=== PATIENT | female | born 1945 | race Caucasian/White ===

== ENCOUNTER 2017-07-13 16:22 | Inpatient (IN) | payer MEDICARE, MEDICAID ==
[~2017-07-13] VITALS: Ht 165.1 cm; Wt 107.3 kg
[~2017-07-13 16:22] MED LIST: ALB0.5UD IH; CARB1TAB35 PO; CARV3.1289 PO; CHOL100010 PO; DIPH-423 PO; FURO40TA4 PO; GEMF600T3 PO; LANTUS SUBCUT; LISI-604 PO; MAGN250T29 PO; METF-436 PO; NITR0.4T51 SL; POTA10TA10 PO; PROB500T10 PO; TRAZ-89 PO; [UNRECOGNIZED DRUG - CODE] PO
[2017-07-13 16:58] LABS: BASOPHILS % (AUTO) 0.6 % (0-1); EOSINOPHILS # (AUTO) 0.1 X10'3 (0-0.9); EOSINOPHILS % (AUTO) 1.4 % (0-6); HEMATOCRIT 40.8 % (35.0-45.0); LYMPHOCYTES % (AUTO) 26.7 % (21-51); MEAN CORPUSCULAR HEMOGLOBIN 30.8 PG (27.0-31.0); MEAN CORPUSCULAR HGB CONC 34.4 % (33.0-36.5); MEAN CORPUSCULAR VOLUME 89.7 FL (78-98); MEAN PLATELET VOLUME 7.7 FL (7.4-10.4); MONOCYTES # (AUTO) 0.5 X10'3 (0-0.9); MONOCYTES % (AUTO) 6.7 % (2-12); NEUTROPHILS # (AUTO) 4.9 X10'3 (1.8-7.7); NEUTROPHILS % (AUTO) 64.6 % (42-75); PLATELET COUNT 267 X10'3 (140-440); RED BLOOD COUNT 4.55 X10'6 (4.20-5.60); RED CELL DISTRIBUTION WIDTH 13.3 % (11.5-14.5); WHITE BLOOD COUNT 7.6 X10'3 (4.5-11.0)
[2017-07-13 17:08] LABS: PARTIAL THROMBOPLASTIN TIME 25 SECONDS (22-32); PROTHROMBIN TIME 10.3 SECONDS (9.0-12.0)
[2017-07-13 17:11] LABS: ALANINE AMINOTRANSFERASE 12 U/L (12-78); ALBUMIN 3.6 G/DL (3.4-5.0); ALKALINE PHOSPHATASE 52 IU/L (46-116); ANION GAP 12 (8-16); ASPARTATE AMINO TRANSFERASE 19 U/L (10-37); BILIRUBIN,TOTAL 0.2 MG/DL (0.1-1.0); BLOOD UREA NITROGEN 17 MG/DL (7-18); BUN/CREATININE RATIO 13.6 (6.6-38.0); CALCIUM 9.1 MG/DL (8.5-10.1); CHLORIDE 102 MMOL/L (99-107); CREATININE 1.25 MG/DL (0.40-0.90); GLUCOSE 195 MG/DL (70-104); POTASSIUM 4.4 MMOL/L (3.5-5.1); SODIUM 138 MMOL/L (135-145); TOTAL CARBON DIOXIDE 24.4 MMOL/L (24-32); TOTAL PROTEIN 7.1 G/DL (6.4-8.2); eGFR 42 ML/MIN
[2017-07-13] MEDS ORDERED: metoprolol tartrate 50mg tablet PO ONE (18:10)
[2017-07-13] MEDS ORDERED: lisinopril 5mg tablet PO SCH (21:00)
[2017-07-13] MEDS ORDERED: nitroGLYCERIN 0.4mg SUBLingual tab SL PRN (21:00)
[2017-07-13] MEDS ORDERED: mag hydrox/Alum hydrox/simeth 30ml oral suspension PO PRN (21:00)
[2017-07-13] MEDS ORDERED: acetaminophen 325mg tablet PO PRN (21:00)
[2017-07-13] MEDS ORDERED: ondansetron/PF 4mg/2ml inj IV PRN (21:00)
[2017-07-13] MEDS ORDERED: magnesium hydroxide 30ml (MOM) UD suspension PO PRN (21:00)
[2017-07-13] MEDS ORDERED: glucagon, human recombinant 1mg kit SUBCUT PRN (21:10)
[2017-07-13] MEDS ORDERED: dextrose 50%-water 50ml dispensing syringe IV PRN ×2 (21:10)
[2017-07-13] MEDS ORDERED: MESSAGE TO PHARMACY PO ONE (21:10)
[2017-07-13] MEDS ORDERED: dextrose ORAL solution 15 GM/59 ML bottle PO PRN ×2 (21:10)
[2017-07-13 21:25] LABS: HEMOGLOBIN A1C 8.3 % (4.5-6.2)
[2017-07-13] MEDS: diphenhydrAMINE 25mg capsule PO SCH (21:46)
[2017-07-13] MEDS: traZODone 50mg tablet PO SCH (21:46)
[2017-07-13 22:00] VITALS: BP 174/94
[2017-07-13] MEDS ORDERED: albuterol 2.5 MG/3 ML nebule NEB PRN (22:10)
[2017-07-14 02:00] VITALS: BP 175/50
[2017-07-14 05:57] LABS: BASOPHILS % (AUTO) 0.6 % (0-1); EOSINOPHILS # (AUTO) 0.2 X10'3 (0-0.9); EOSINOPHILS % (AUTO) 2.2 % (0-6); HEMATOCRIT 38.1 % (35.0-45.0); HEMOGLOBIN 13.1 g/dl (12.0-16.0); LYMPHOCYTES # (AUTO) 2.1 X10'3 (1.1-4.8); LYMPHOCYTES % (AUTO) 28.9 % (21-51); MEAN CORPUSCULAR HGB CONC 34.5 % (33.0-36.5); MEAN CORPUSCULAR VOLUME 90.1 FL (78-98); MEAN PLATELET VOLUME 7.8 FL (7.4-10.4); MONOCYTES # (AUTO) 0.5 X10'3 (0-0.9); MONOCYTES % (AUTO) 6.3 % (2-12); NEUTROPHILS # (AUTO) 4.4 X10'3 (1.8-7.7); PLATELET COUNT 228 X10'3 (140-440); RED BLOOD COUNT 4.22 X10'6 (4.20-5.60); RED CELL DISTRIBUTION WIDTH 13.2 % (11.5-14.5); WHITE BLOOD COUNT 7.2 X10'3 (4.5-11.0)
[2017-07-14 06:00] VITALS: BP 163/90
[2017-07-14 06:08] LABS: ALANINE AMINOTRANSFERASE 22 U/L (12-78); ALBUMIN 3.2 G/DL (3.4-5.0); ALKALINE PHOSPHATASE 45 IU/L (46-116); ANION GAP 7 (8-16); ASPARTATE AMINO TRANSFERASE 17 U/L (10-37); BILIRUBIN,TOTAL 0.3 MG/DL (0.1-1.0); BLOOD UREA NITROGEN 18 MG/DL (7-18); BUN/CREATININE RATIO 16.7 (6.6-38.0); CALCIUM 8.8 MG/DL (8.5-10.1); CHLORIDE 103 MMOL/L (99-107); CREATININE 1.08 MG/DL (0.40-0.90); GLUCOSE 193 MG/DL (70-104); POTASSIUM 4.1 MMOL/L (3.5-5.1); SODIUM 139 MMOL/L (135-145); TOTAL CARBON DIOXIDE 29.4 MMOL/L (24-32); TOTAL PROTEIN 6.3 G/DL (6.4-8.2); eGFR 50 ML/MIN
[2017-07-14 06:11] LABS: CHOL/HDL RATIO 4.3 (0.00-4.99); CHOLESTEROL 121 MG/DL (0-200); HDL CHOLESTEROL 28 MG/DL (35-60); LDL CHOLESTEROL 65 MG/DL (50-100); TRIGLYCERIDES 254 MG/DL (20-135)
[2017-07-14] MEDS: MAGNESIUM OXIDE 250 MG PO SCH ×2 (08:00→20:00)
[2017-07-14] MEDS: famotidine 20mg tablet PO SCH (08:00)
[2017-07-14] MEDS ORDERED: RANITIDINE HCL 300 MG PO SCH (08:00)
[2017-07-14] MEDS: diphenhydrAMINE 25mg capsule PO SCH ×3 (08:00→21:48)
[2017-07-14] MEDS: carvedilol 6.25mg tablet PO SCH ×2 (08:00→21:48)
[2017-07-14] MEDS: carbidoba-levodopa 25-100mg tablet PO SCH ×2 (08:01→21:48)
[2017-07-14] MEDS: potassium chloride 8mEq ER tablet PO SCH ×2 (08:01→21:48)
[2017-07-14] MEDS: furosemide 40mg tablet PO SCH (08:02)
[2017-07-14] MEDS: probenecid 500mg tablet PO SCH ×2 (08:03→21:48)
[2017-07-14] MEDS ORDERED: aspirin 325mg tablet PO SCH (08:30)
[2017-07-14] MEDS: insulin Lispro (HumaLOG) vial - multi-dose SQ SCH ×3 (09:31→19:17)
[2017-07-14] MEDS: gemfibrozil 600mg tablet PO SCH ×2 (09:36→21:49)
[2017-07-14] MEDS: heparin, porcine 5000 units/ml vial SQ SCH ×2 (09:37→21:49)
[2017-07-14] MEDS: aspirin 81mg tablet.DR PO SCH (09:38)
[2017-07-14] MEDS ORDERED: lisinopril 20mg tablet PO SCH (16:05)
[2017-07-14 18:00] VITALS: BP 184/93
[2017-07-14] MEDS ORDERED: insulin glargine (Lantus) pen - multi-dose SQ SCH (21:00)
[2017-07-14] MEDS: traZODone 50mg tablet PO SCH (21:49)
[2017-07-14 22:00] VITALS: BP 131/71
[2017-07-15 02:00] VITALS: BP 100/59
[2017-07-15 06:00] LABS: BASOPHILS % (AUTO) 0.6 % (0-1); EOSINOPHILS # (AUTO) 0.2 X10'3 (0-0.9); EOSINOPHILS % (AUTO) 2.9 % (0-6); HEMATOCRIT 38.3 % (35.0-45.0); HEMOGLOBIN 13.3 g/dl (12.0-16.0); LYMPHOCYTES % (AUTO) 33.1 % (21-51); MEAN CORPUSCULAR HGB CONC 34.7 % (33.0-36.5); MEAN CORPUSCULAR VOLUME 89.4 FL (78-98); MEAN PLATELET VOLUME 7.8 FL (7.4-10.4); MONOCYTES # (AUTO) 0.4 X10'3 (0-0.9); MONOCYTES % (AUTO) 6.8 % (2-12); NEUTROPHILS # (AUTO) 3.5 X10'3 (1.8-7.7); NEUTROPHILS % (AUTO) 56.6 % (42-75); PLATELET COUNT 218 X10'3 (140-440); RED BLOOD COUNT 4.28 X10'6 (4.20-5.60); RED CELL DISTRIBUTION WIDTH 13.3 % (11.5-14.5); WHITE BLOOD COUNT 6.2 X10'3 (4.5-11.0)
[2017-07-15 06:17] LABS: ALANINE AMINOTRANSFERASE 9 U/L (12-78); ALBUMIN 3.2 G/DL (3.4-5.0); ALKALINE PHOSPHATASE 48 IU/L (46-116); ANION GAP 10 (8-16); ASPARTATE AMINO TRANSFERASE 23 U/L (10-37); BILIRUBIN,TOTAL 0.4 MG/DL (0.1-1.0); BLOOD UREA NITROGEN 23 MG/DL (7-18); BUN/CREATININE RATIO 18.5 (6.6-38.0); CALCIUM 8.8 MG/DL (8.5-10.1); CHLORIDE 101 MMOL/L (99-107); CREATININE 1.24 MG/DL (0.40-0.90); GLUCOSE 210 MG/DL (70-104); POTASSIUM 4.1 MMOL/L (3.5-5.1); SODIUM 137 MMOL/L (135-145); TOTAL CARBON DIOXIDE 25.8 MMOL/L (24-32); TOTAL PROTEIN 6.3 G/DL (6.4-8.2); eGFR 43 ML/MIN
[2017-07-15 07:50] VITALS: BP 122/67
[2017-07-15] MEDS: MAGNESIUM OXIDE 250 MG PO SCH (08:00)
[2017-07-15] MEDS: insulin Lispro (HumaLOG) vial - multi-dose SQ SCH ×2 (08:19→13:33)
[2017-07-15] MEDS: aspirin 81mg tablet.DR PO SCH (08:20)
[2017-07-15] MEDS: diphenhydrAMINE 25mg capsule PO SCH ×3 (08:20→13:34)
[2017-07-15] MEDS: famotidine 20mg tablet PO SCH (08:20)
[2017-07-15] MEDS: carvedilol 6.25mg tablet PO SCH (08:20)
[2017-07-15] MEDS: probenecid 500mg tablet PO SCH (08:20)
[2017-07-15] MEDS: gemfibrozil 600mg tablet PO SCH (08:20)
[2017-07-15] MEDS: furosemide 40mg tablet PO SCH (08:20)
[2017-07-15] MEDS: potassium chloride 8mEq ER tablet PO SCH (08:20)
[2017-07-15] MEDS: carbidoba-levodopa 25-100mg tablet PO SCH (08:20)
[2017-07-15] MEDS: heparin, porcine 5000 units/ml vial SQ SCH (08:21)
[2017-07-15] MEDS ORDERED: LORazepam 2 mg/ml vial IV ONE (09:50)
[2017-07-15 11:14] VITALS: BP 140/75
[2017-07-15 14:31] VITALS: BP 135/73
[2017-07-15] MEDS ORDERED: ASPI-1071 PO (16:56)
== END 2017-07-15 17:27 | disposition home or self-care (01) | DRG 47 ==
LOC: ER 16:22 → ED HOLD 21:00 → ORTHO 4S 22:10
PROVIDERS: ADMIT Internal Medicine; ATTEND Family Medicine
DX: G45.9 Transient cerebral ischemic attack, unspecified (principal); I48.91 Unspecified atrial fibrillation; E11.9 Type 2 diabetes mellitus without complications; I51.81 Takotsubo syndrome; E78.5 Hyperlipidemia, unspecified; J45.909 Unspecified asthma, uncomplicated; R07.89 Other chest pain; I10 Essential (primary) hypertension; R47.81 Slurred speech; R29.810 Facial weakness; G47.33 Obstructive sleep apnea (adult) (pediatric); Z91.041 Radiographic dye allergy status; Z88.2 Allergy status to sulfonamides; I25.2 Old myocardial infarction; Z88.8 Allergy status to other drugs, medicaments and biological substances; Z91.018 Allergy to other foods; Z88.6 Allergy status to analgesic agent; Z86.73 Personal history of transient ischemic attack (TIA), and cerebral infarction without residual deficits; Z87.891 Personal history of nicotine dependence; Z90.49 Acquired absence of other specified parts of digestive tract; Z79.4 Long term (current) use of insulin
CPT/HCPCS: 36415; 70450; 70544; 70551; 71045; 80053; 80061; 82948; 83036; 83880; 84484; 85025; 85610; 85730; 87070; 92616; 93005; 93306; 93880; 99285; J1644; J1815; J2060; Q0163

== ENCOUNTER 2017-09-13 13:16 | Inpatient (IN) | payer MEDICARE, MEDICAID ==
[~2017-09-13] VITALS: Ht 165.1 cm; Wt 107.0 kg
[~2017-09-13 13:16] MED LIST changes: +ASPI-1071 PO
[2017-09-13 13:51] LABS: BASOPHILS # (AUTO) 0.1 X10'3 (0-0.2); EOSINOPHILS # (AUTO) 0.1 X10'3 (0-0.9); EOSINOPHILS % (AUTO) 1.7 % (0-6); HEMATOCRIT 42.5 % (35.0-45.0); HEMOGLOBIN 14.4 g/dl (12.0-16.0); LYMPHOCYTES # (AUTO) 1.8 X10'3 (1.1-4.8); LYMPHOCYTES % (AUTO) 28.9 % (21-51); MEAN CORPUSCULAR HEMOGLOBIN 30.6 PG (27.0-31.0); MEAN CORPUSCULAR HGB CONC 33.9 % (33.0-36.5); MEAN CORPUSCULAR VOLUME 90.3 FL (78-98); MEAN PLATELET VOLUME 7.9 FL (7.4-10.4); MONOCYTES # (AUTO) 0.4 X10'3 (0-0.9); MONOCYTES % (AUTO) 5.8 % (2-12); NEUTROPHILS # (AUTO) 3.8 X10'3 (1.8-7.7); NEUTROPHILS % (AUTO) 62.6 % (42-75); PLATELET COUNT 214 X10'3 (140-440); RED CELL DISTRIBUTION WIDTH 13.1 % (11.5-14.5); WHITE BLOOD COUNT 6.1 X10'3 (4.5-11.0)
[2017-09-13 14:03] LABS: INR 1.1 INR; PARTIAL THROMBOPLASTIN TIME 26 SECONDS (22-32); PROTHROMBIN TIME 10.9 SECONDS (9.0-12.0)
[2017-09-13 14:08] LABS: ALANINE AMINOTRANSFERASE 12 U/L (12-78); ALBUMIN 3.7 G/DL (3.4-5.0); ALBUMIN/GLOBULIN RATIO 1.1 (1.1-1.5); ALKALINE PHOSPHATASE 56 IU/L (46-116); ANION GAP 9 (8-16); ASPARTATE AMINO TRANSFERASE 17 U/L (10-37); BILIRUBIN,TOTAL 0.3 MG/DL (0.1-1.0); BLOOD UREA NITROGEN 19 MG/DL (7-18); BUN/CREATININE RATIO 15.3 (6.6-38.0); CALCIUM 9.1 MG/DL (8.5-10.1); CHLORIDE 101 MMOL/L (99-107); CREATININE 1.24 MG/DL (0.40-0.90); GLUCOSE 138 MG/DL (70-104); MAGNESIUM 2.2 MG/DL (1.5-2.4); POTASSIUM 4.5 MMOL/L (3.5-5.1); SODIUM 138 MMOL/L (135-145); TOTAL CARBON DIOXIDE 28.2 MMOL/L (24-32); TOTAL PROTEIN 7.2 G/DL (6.4-8.2); eGFR 43 ML/MIN
[2017-09-13] MEDS ORDERED: HYDROmorphone 1 mg/ml syringe IV PRN ×2 (15:40)
[2017-09-13] MEDS ORDERED: morphine 4 MG/ML inj SYRINge IV PRN ×2 (15:40)
[2017-09-13] MEDS ORDERED: bisacodyl 10mg suppository rectal RC PRN (15:40)
[2017-09-13] MEDS ORDERED: magnesium hydroxide 30ml (MOM) UD suspension PO PRN (15:40)
[2017-09-13] MEDS ORDERED: metoclopramide 5 mg/ml inj IV PRN (15:40)
[2017-09-13] MEDS ORDERED: acetaminophen 650mg rectal suppository RC PRN (15:40)
[2017-09-13] MEDS ORDERED: acetaminophen 325mg tablet PO PRN ×2 (15:40)
[2017-09-13] MEDS ORDERED: diphenhydrAMINE 50 mg/ml inj IV PRN (15:40)
[2017-09-13] MEDS ORDERED: normal saline 1000ml 1,000 ML IV SCH (15:40)
[2017-09-13] MEDS ORDERED: mag hydrox/Alum hydrox/simeth 30ml oral suspension PO PRN (15:40)
[2017-09-13] MEDS ORDERED: diphenhydrAMINE 25mg capsule PO PRN (15:40)
[2017-09-13] MEDS ORDERED: ondansetron/PF 4mg/2ml inj IV PRN (15:40)
[2017-09-13] MEDS ORDERED: glucagon, human recombinant 1mg kit SUBCUT PRN (15:45)
[2017-09-13] MEDS ORDERED: MESSAGE TO PHARMACY PO ONE (15:45)
[2017-09-13] MEDS ORDERED: insulin Lispro (HumaLOG) vial - multi-dose SQ SCH (15:45)
[2017-09-13] MEDS: atorvastatin 10mg tablet PO SCH (15:45)
[2017-09-13] MEDS ORDERED: dextrose 50%-water 50ml dispensing syringe IV PRN ×2 (15:45)
[2017-09-13] MEDS ORDERED: dextrose ORAL solution 15 GM/59 ML bottle PO PRN ×2 (15:45)
[2017-09-13] MEDS: clopidogrel 75mg tablet PO SCH (15:45)
[2017-09-13 16:49] LABS: CREATINE KINASE 116 U/L (26-192); LIPASE 185 U/L (73-393); PHOSPHORUS 3.9 MG/DL (2.3-4.5)
[2017-09-13 17:11] LABS: CLARITY,URINE CLEAR (Clear); COLOR,URINE STRAW (Yellow); GLUCOSE, URINE NEGATIVE (Neg); KETONES,URINE NEGATIVE (Neg); LEUKOCYTE ESTERASE ,URINE LARGE (Neg); NITRITES, URINE NEGATIVE (Neg); OCCULT BLOOD,URINE NEGATIVE (Neg); PH,URINE 6.5 (4.8-8.0); PROTEIN,URINE NEGATIVE (Neg); UROBILINOGEN,URINE 0.2 E.U/dL (0.2-1.0)
[2017-09-13 17:20] LABS: HEMOGLOBIN A1C 7.8 % (4.5-6.2)
[2017-09-13 17:30] LABS: UA COLLECTION TYPE CLN CATCH MIDSTREAM
[2017-09-13 17:33] LABS: BACTERIA,URINE FEW /HPF (Neg); RBC,URINE NONE SEEN /HPF (0-2)
[2017-09-13 17:34] LABS: HYALINE CASTS 0-3 /LPF (NEGATIVE); MUCUS STRANDS NONE SEEN /LPF (Neg); SQUAMOUS EPITHELIAL CELL,UR FEW /LPF (FEW); TRANSITIONAL EPI CELLS,URINE FEW /HPF
[2017-09-13] MEDS: furosemide 10 MG/1 ML 10ml inj IV SCH (17:52)
[2017-09-13] MEDS: docusate sod 100mg capsule PO SCH (20:00)
[2017-09-13 20:26] VITALS: BP 196/79
[2017-09-13] MEDS ORDERED: DIPH50CA3 PO (20:47)
[2017-09-13] MEDS ORDERED: CARB1TAB23 PO (20:47)
[2017-09-13] MEDS ORDERED: LANTUS SQ (20:49)
[2017-09-13] MEDS ORDERED: temazepam 15mg capsule PO PRN (21:00)
[2017-09-13 22:00] VITALS: BP 139/77
[2017-09-14 02:00] VITALS: BP 122/68
[2017-09-14 06:34] LABS: BASOPHILS % (AUTO) 0.6 % (0-1); EOSINOPHILS # (AUTO) 0.1 X10'3 (0-0.9); EOSINOPHILS % (AUTO) 1.4 % (0-6); HEMATOCRIT 39.3 % (35.0-45.0); HEMOGLOBIN 13.4 g/dl (12.0-16.0); LYMPHOCYTES # (AUTO) 1.7 X10'3 (1.1-4.8); LYMPHOCYTES % (AUTO) 22.6 % (21-51); MEAN CORPUSCULAR HEMOGLOBIN 30.7 PG (27.0-31.0); MEAN CORPUSCULAR HGB CONC 34.1 % (33.0-36.5); MEAN CORPUSCULAR VOLUME 89.8 FL (78-98); MEAN PLATELET VOLUME 8.1 FL (7.4-10.4); MONOCYTES # (AUTO) 0.4 X10'3 (0-0.9); MONOCYTES % (AUTO) 5.3 % (2-12); NEUTROPHILS # (AUTO) 5.2 X10'3 (1.8-7.7); NEUTROPHILS % (AUTO) 70.1 % (42-75); PLATELET COUNT 220 X10'3 (140-440); RED BLOOD COUNT 4.37 X10'6 (4.20-5.60); WHITE BLOOD COUNT 7.5 X10'3 (4.5-11.0)
[2017-09-14 06:46] LABS: ALANINE AMINOTRANSFERASE 20 U/L (12-78); ALBUMIN 3.4 G/DL (3.4-5.0); ALKALINE PHOSPHATASE 50 IU/L (46-116); ANION GAP 7 (8-16); ASPARTATE AMINO TRANSFERASE 17 U/L (10-37); BILIRUBIN,TOTAL 0.3 MG/DL (0.1-1.0); BLOOD UREA NITROGEN 20 MG/DL (7-18); BUN/CREATININE RATIO 17.5 (6.6-38.0); CALCIUM 8.7 MG/DL (8.5-10.1); CHLORIDE 101 MMOL/L (99-107); CREATININE 1.14 MG/DL (0.40-0.90); GLUCOSE 163 MG/DL (70-104); POTASSIUM 3.6 MMOL/L (3.5-5.1); SODIUM 136 MMOL/L (135-145); TOTAL CARBON DIOXIDE 27.8 MMOL/L (24-32); TOTAL PROTEIN 6.7 G/DL (6.4-8.2); eGFR 47 ML/MIN
[2017-09-14 06:50] LABS: CHOL/HDL RATIO 4.3 (0.00-4.99); CHOLESTEROL 111 MG/DL (0-200); HDL CHOLESTEROL 26 MG/DL (35-60); LDL CHOLESTEROL 55 MG/DL (50-100); TRIGLYCERIDES 273 MG/DL (20-135)
[2017-09-14] MEDS: docusate sod 100mg capsule PO SCH ×2 (07:56→08:03)
[2017-09-14] MEDS: atorvastatin 10mg tablet PO SCH (07:56)
[2017-09-14] MEDS: clopidogrel 75mg tablet PO SCH (07:56)
[2017-09-14] MEDS: furosemide 10 MG/1 ML 10ml inj IV SCH (08:01)
[2017-09-14] MEDS ORDERED: LORazepam 2 mg/ml vial IM ONE (09:45)
[2017-09-14 10:00] VITALS: BP 132/67
[2017-09-14] MEDS ORDERED: albuterol 2.5 MG/3 ML nebule NEB PRN (11:20)
[2017-09-14] MEDS ORDERED: PROBENECID 500 MG PO SCH (20:00)
[2017-09-14] MEDS ORDERED: ciprofloxacin 250mg tablet PO SCH (20:00)
[2017-09-14] MEDS ORDERED: metFORMIN 500mg tablet PO SCH (20:00)
[2017-09-14] MEDS ORDERED: magnesium oxide 400mg tablet PO SCH (20:00)
[2017-09-14] MEDS ORDERED: DIPHENHYDRAMINE HCL PO SCH (20:00)
[2017-09-14] MEDS ORDERED: potassium chloride 8mEq ER tablet PO SCH (20:00)
[2017-09-14] MEDS ORDERED: gemfibrozil 600mg tablet PO SCH (20:00)
[2017-09-14] MEDS ORDERED: probenecid 500mg tablet PO SCH (20:00)
[2017-09-14] MEDS ORDERED: insulin glargine (Lantus) pen - multi-dose SQ SCH (21:00)
[2017-09-14] MEDS ORDERED: carbidoba-levodopa 25-100mg tablet PO SCH (21:00)
[2017-09-14] MEDS ORDERED: traZODone 50mg tablet PO SCH (21:00)
[2017-09-15] MEDS ORDERED: furosemide 40mg tablet PO SCH (08:00)
[2017-09-15] MEDS ORDERED: vitamin D (cholecalciferol) 1,000 unit tablet PO SCH (08:00)
[2017-09-15] MEDS ORDERED: aspirin 81mg tablet.DR PO SCH (08:30)
== END 2017-09-14 15:05 | disposition home or self-care (01) | DRG 682 ==
LOC: ER 13:16 → ED HOLD 15:40 → ORTHO 4S 20:10
PROVIDERS: ADMIT Family Medicine; ATTEND Internal Medicine
DX: N17.9 Acute kidney failure, unspecified (principal); I50.33 Acute on chronic diastolic (congestive) heart failure; G45.9 Transient cerebral ischemic attack, unspecified; I16.9 Hypertensive crisis, unspecified; E11.9 Type 2 diabetes mellitus without complications; E66.01 Morbid (severe) obesity due to excess calories; E78.5 Hyperlipidemia, unspecified; G25.81 Restless legs syndrome; I11.0 Hypertensive heart disease with heart failure; I25.10 Atherosclerotic heart disease of native coronary artery without angina pectoris; I25.2 Old myocardial infarction; J45.909 Unspecified asthma, uncomplicated; Z90.49 Acquired absence of other specified parts of digestive tract; Z88.1 Allergy status to other antibiotic agents; Z88.8 Allergy status to other drugs, medicaments and biological substances; Z88.2 Allergy status to sulfonamides; Z88.5 Allergy status to narcotic agent; Z91.018 Allergy to other foods; Z91.048 Other nonmedicinal substance allergy status; Z91.14 Patient's other noncompliance with medication regimen; Z68.39 Body mass index [BMI] 39.0-39.9, adult
CPT/HCPCS: 36415; 70450; 70544; 70551; 71045; 80053; 80061; 81001; 82550; 82948; 83036; 83690; 83735; 83880; 84100; 84443; 84484; 85025; 85610; 85730; 87070; 87077; 87088; 87186; 93005; 99285; J1815; J1940; J2060

== ENCOUNTER 2019-06-01 14:31 | Observation (INO) | payer MEDICARE, OTHER ==
[~2019-06-01] VITALS: Ht 165.1 cm; Wt 102.0 kg
[~2019-06-01 14:31] MED LIST changes: +CARB1TAB23 PO; -CARB1TAB35 PO; -CARV3.1289 PO; -DIPH-423 PO; +DIPH50CA3 PO; -GEMF600T3 PO; +GEMF600T5 PO; +LANTUS SQ; -LANTUS SUBCUT; -LISI-604 PO; -NITR0.4T51 SL; -[UNRECOGNIZED DRUG - CODE] PO
[2019-06-01 15:10] LABS: BASOPHILS # (AUTO) 0.1 X10'3 (0-0.2); EOSINOPHILS # (AUTO) 0.1 X10'3 (0-0.9); EOSINOPHILS % (AUTO) 2.2 % (0-6); HEMOGLOBIN 13.7 g/dl (12.0-16.0); LYMPHOCYTES # (AUTO) 1.6 X10'3 (1.1-4.8); LYMPHOCYTES % (AUTO) 25.7 % (21-51); MEAN CORPUSCULAR HEMOGLOBIN 30.3 PG (27.0-31.0); MEAN CORPUSCULAR HGB CONC 33.5 g/dL (33.0-36.5); MEAN CORPUSCULAR VOLUME 90.6 FL (78-98); MEAN PLATELET VOLUME 7.8 FL (7.4-10.4); MONOCYTES # (AUTO) 0.4 X10'3 (0-0.9); MONOCYTES % (AUTO) 6.4 % (2-12); NEUTROPHILS # (AUTO) 4.1 X10'3 (1.8-7.7); NEUTROPHILS % (AUTO) 64.7 % (42-75); PLATELET COUNT 254 X10'3 (140-440); RED BLOOD COUNT 4.53 X10'6 (4.20-5.60); RED CELL DISTRIBUTION WIDTH 13.1 % (11.5-14.5); WHITE BLOOD COUNT 6.4 X10'3 (4.5-11.0)
[2019-06-01 15:22] LABS: PARTIAL THROMBOPLASTIN TIME 27 SECONDS (22-32)
[2019-06-01 15:27] LABS: ALANINE AMINOTRANSFERASE 14 U/L (12-78); ALBUMIN 3.7 G/DL (3.4-5.0); ALKALINE PHOSPHATASE 53 IU/L (46-116); ANION GAP 9 (8-16); ASPARTATE AMINO TRANSFERASE 23 U/L (10-37); BILIRUBIN,TOTAL 0.3 MG/DL (0.1-1.0); BLOOD UREA NITROGEN 18 MG/DL (7-18); BUN/CREATININE RATIO 14.6 (6.6-38.0); CALCIUM 9.5 MG/DL (8.5-10.1); CHLORIDE 103 MMOL/L (99-107); CREATININE 1.23 MG/DL (0.40-0.90); GLUCOSE 142 MG/DL (70-104); POTASSIUM 4.1 MMOL/L (3.5-5.1); SODIUM 142 MMOL/L (135-145); TOTAL CARBON DIOXIDE 30.3 MMOL/L (24-32); TOTAL PROTEIN 7.5 G/DL (6.4-8.2); eGFR 43 ML/MIN
[2019-06-01] MEDS ORDERED: aspirin 81mg tab.chew PO ONE (16:15)
[2019-06-01 16:48] LABS: D-DIMER 0.47 MG/L FEU (0-0.50)
[2019-06-01] MEDS ORDERED: POTA8CAP20 PO (16:59)
[2019-06-01] MEDS ORDERED: ASPI81TA48 PO (17:01)
[2019-06-01] MEDS ORDERED: DONE-46 PO (17:01)
[2019-06-01] MEDS ORDERED: LISI-604 PO (17:03)
[2019-06-01] MEDS ORDERED: ATOR40TA72 PO (17:03)
[2019-06-01] MEDS ORDERED: LEVO50TA8 PO (17:03)
[2019-06-01] MEDS ORDERED: HYDROcodone/acetaminophen 5mg/325mg tablet PO PRN (17:40)
[2019-06-01] MEDS ORDERED: acetaminophen 325mg tablet PO PRN (17:40)
[2019-06-01] MEDS ORDERED: morphine 2 MG/ML inj. syringe IV PRN ×2 (17:40)
[2019-06-01] MEDS ORDERED: magnesium hydroxide 30ml (MOM) UD suspension PO PRN (17:40)
[2019-06-01] MEDS ORDERED: nitroGLYCERIN 0.4mg SUBLingual tab SL PRN (17:40)
[2019-06-01] MEDS ORDERED: mag hydrox/Alum hydrox/simeth 30ml oral suspension PO PRN (17:40)
[2019-06-01] MEDS ORDERED: ondansetron/PF 4mg/2ml inj IV PRN (17:40)
[2019-06-01] MEDS ORDERED: DIPH-423 PO (18:41)
[2019-06-01 19:05] LABS: HEMOGLOBIN A1C 8.1 % (4.5-6.2)
[2019-06-01] MEDS: donepezil 5mg tablet PO SCH (20:00)
[2019-06-01] MEDS: potassium chloride 8mEq ER tablet PO SCH (20:00)
--- NOTE | 2019-06-01 20:15 | NUR ---
Patient in room PCU 3018. I have received report from Dallin RN (ER) and had the opportunity to ask questions and assume patient care. Patient arrived to telemetry by sara and was able to ambulate into her bed. Telemetry placed, VS taken, pt. oriented to room and call light. All patient belongings placed on nightstand. Will continue to monitor.
[2019-06-01] MEDS ORDERED: traZODone 50mg tablet PO SCH (21:00)
[2019-06-01] MEDS: furosemide 40mg/4ml inj IV SCH (22:06)
[2019-06-01] MEDS: probenecid 500mg tablet PO SCH (22:07)
[2019-06-01] MEDS: carbidoba-levodopa 25-100mg tablet PO SCH (22:11)
[2019-06-01 23:00] VITALS: BP 130/70
[2019-06-02] VITALS (16 sets, daily range): BP systolic 96–151; BP diastolic 54–84
[2019-06-02 03:22] LABS: BASOPHILS # (AUTO) 0.1 X10'3 (0-0.2); BASOPHILS % (AUTO) 0.8 % (0-1); EOSINOPHILS # (AUTO) 0.1 X10'3 (0-0.9); EOSINOPHILS % (AUTO) 2.2 % (0-6); HEMATOCRIT 39.6 % (35.0-45.0); HEMOGLOBIN 13.4 g/dl (12.0-16.0); LYMPHOCYTES # (AUTO) 1.7 X10'3 (1.1-4.8); LYMPHOCYTES % (AUTO) 25.6 % (21-51); MEAN CORPUSCULAR VOLUME 91.1 FL (78-98); MEAN PLATELET VOLUME 7.7 FL (7.4-10.4); MONOCYTES # (AUTO) 0.5 X10'3 (0-0.9); MONOCYTES % (AUTO) 6.9 % (2-12); NEUTROPHILS # (AUTO) 4.2 X10'3 (1.8-7.7); NEUTROPHILS % (AUTO) 64.5 % (42-75); PLATELET COUNT 249 X10'3 (140-440); RED BLOOD COUNT 4.34 X10'6 (4.20-5.60); WHITE BLOOD COUNT 6.6 X10'3 (4.5-11.0)
[2019-06-02 03:37] LABS: ALBUMIN 3.4 G/DL (3.4-5.0); ANION GAP 6 (8-16); BLOOD UREA NITROGEN 21 MG/DL (7-18); BUN/CREATININE RATIO 19.8 (6.6-38.0); CALCIUM 9.3 MG/DL (8.5-10.1); CHLORIDE 103 MMOL/L (99-107); CREATININE 1.06 MG/DL (0.40-0.90); GLUCOSE 192 MG/DL (70-104); POTASSIUM 3.8 MMOL/L (3.5-5.1); SODIUM 139 MMOL/L (135-145); TOTAL CARBON DIOXIDE 29.8 MMOL/L (24-32); eGFR 51 ML/MIN
[2019-06-02] MEDS ORDERED: dextrose ORAL solution 15 GM/59 ML bottle PO PRN ×4 (04:55→05:00)
[2019-06-02] MEDS ORDERED: dextrose 50%-water 50ml dispensing syringe IV PRN ×4 (04:55→05:00)
[2019-06-02] MEDS ORDERED: glucagon, human recombinant 1mg kit SUBCUT PRN ×2 (04:55→05:00)
[2019-06-02] MEDS ORDERED: MESSAGE TO PHARMACY PO ONE (04:55)
[2019-06-02] MEDS ORDERED: insulin Lispro (HumaLOG) vial - multi-dose SQ SCH (04:55)
--- NOTE | 2019-06-02 06:29 | NUR ---
Problems reprioritized. Patient report given, questions answered & plan of care reviewed with Sweetie ESPINO.
--- NOTE | 2019-06-02 06:36 | NUR ---
Patient in room PCU 3018. I have received report from KENZIE Jaffe and had the opportunity to ask questions and assume patient care. Patient asleep in bed and in no acute distress.
[2019-06-02] MEDS ORDERED: levoTHYROXINE 25mcg tablet PO SCH (07:00)
[2019-06-02] MEDS ORDERED: regadenoson 0.4mg/5ml syringe IV PRN (07:35)
[2019-06-02] MEDS ORDERED: metoprolol tartrate 1mg/ml inj IV PRN (07:35)
[2019-06-02] MEDS ORDERED: aminophylline 250mg/10ml inj. IV PRN (07:35)
[2019-06-02] MEDS ORDERED: nitroGLYCERIN 0.4mg SUBLingual tab SL PRN (07:35)
[2019-06-02] MEDS ORDERED: atorvastatin 20mg tablet PO SCH (08:00)
[2019-06-02] MEDS ORDERED: lisinopril 5mg tablet PO SCH (08:00)
[2019-06-02] MEDS ORDERED: aspirin 81mg tablet.DR PO SCH (08:00)
[2019-06-02] MEDS: donepezil 5mg tablet PO SCH (08:35)
[2019-06-02] MEDS: carbidoba-levodopa 25-100mg tablet PO SCH ×2 (08:36→12:26)
[2019-06-02] MEDS: potassium chloride 8mEq ER tablet PO SCH (08:36)
[2019-06-02] MEDS: furosemide 40mg/4ml inj IV SCH (08:40)
--- NOTE | 2019-06-02 09:12 | NUR ---
Patient left floor for lexiscan.
--- NOTE | 2019-06-02 10:39 | NUR ---
Patient back from [facility].
--- NOTE | 2019-06-02 10:41 | NUR ---
Paged Dr. Chavez to let him know that the patient was back from [facility]. PAGER ID: [phone] MESSAGE: [id number]. Kayy Beltre. Patient back from [facility]. Thank you. Sweetie ESPINO x [phone]
[2019-06-02] MEDS: probenecid 500mg tablet PO SCH (10:59)
--- NOTE | 2019-06-02 11:18 | NUR ---
Orders put in for venous doppler of the left leg per Dr. Chavez.
--- NOTE | 2019-06-02 12:17 | NUR ---
Paged Dr. Chavez regarding discharge. PAGER ID: [phone] MESSAGE: [id number]. Kayy Beltre. Did you want the discharge to be done after the doppler? Thank you. Sweetie ESPINO x [phone]
--- NOTE | 2019-06-02 12:23 | NUR ---
DM Consult: Pt admit w/ chest pain currently NPO for stress test this AM. A1C 8.1. Written DM ed w/ RD contact information placed in pt chart. Addendum: 06/02/19 at [address] Amended: Links added.
--- NOTE | 2019-06-02 12:53 | NUR ---
Paged [facility] that patient was done eating for them to do the venous doppler of left leg.
--- NOTE | 2019-06-02 14:08 | NUR ---
Paged Dr. Chavez regarding vascular. PAGER ID: [phone] MESSAGE: [id number]. Kayy Beltre. [facility]ascular US reported that there were no signs of clot. Will discharge. Thank you. Sweetie ESPINO x [phone]
--- NOTE | 2019-06-02 14:38 | NUR ---
Patient is stable for discharge per md orders, discharge instructions reviewed w/ pt and all questions asked, no new medication prescriptions, tele monitor dc'ed and returned, piv dc'ed and clean dry dressing in place, pt is waiting for ride from daughter to discharge home.
--- NOTE | 2019-06-02 14:49 | NUR ---
Patient stable for discharge per MD orders. All discharge instructions reviewed and questions answered appropriately. No new medications were prescribed. Patient will call and make an appointment with her PCP. PIV discontinued and cannula intact. teachers aide discontinued. All belongings collected and sent with patient. Patient wheeled down to the [employer] and left via private vehicle.
[2019-06-02] MEDS ORDERED: insulin glargine (Lantus) pen - multi-dose SQ SCH (21:00)
== END 2019-06-02 14:52 | disposition home or self-care (01) ==
LOC: ER 14:31 → ED HOLD 17:37 → PCU 3S 20:21
PROVIDERS: ADMIT Internal Medicine; ATTEND Internal Medicine
DX: R07.89 Other chest pain (principal); I25.10 Atherosclerotic heart disease of native coronary artery without angina pectoris; I25.2 Old myocardial infarction; I10 Essential (primary) hypertension; E11.9 Type 2 diabetes mellitus without complications; E78.5 Hyperlipidemia, unspecified; E03.9 Hypothyroidism, unspecified; G47.00 Insomnia, unspecified; J45.909 Unspecified asthma, uncomplicated; Z87.891 Personal history of nicotine dependence; Z90.49 Acquired absence of other specified parts of digestive tract; Z79.82 Long term (current) use of aspirin; Z79.84 Long term (current) use of oral hypoglycemic drugs; Z79.899 Other long term (current) drug therapy; Z88.1 Allergy status to other antibiotic agents; Z88.2 Allergy status to sulfonamides; Z88.5 Allergy status to narcotic agent; Z88.6 Allergy status to analgesic agent; Z91.048 Other nonmedicinal substance allergy status; Z91.018 Allergy to other foods; Z88.8 Allergy status to other drugs, medicaments and biological substances
CPT/HCPCS: 36415; 71045; 78452; 80048; 80053; 82948; 83036; 83880; 84484; 85025; 85379; 85610; 85730; 87081; 93005; 93017; 93306; 93971; 96374; 96376; 99285; A9500; G0378; J1815; J1940; J2785